=== PATIENT | female | born 1935 | race Caucasian/White ===

== ENCOUNTER 2016-09-08 00:36 | Emergency (ER) | payer MEDICARE, OTHER ==
[~2016-09-08 00:36] MED LIST: ARIMIDEX1 M1 PO; CINNAMON PO; CITRACAL + D E1 EAC1 PO; CLONAZEPAM1 MG PO; ENALAPRIL MALEA20 MG PO; FISH OIL 1,0001 EAC6 PO; FISH OIL PO; FLONASE ALLERG9.9 ML; GINGER PO; LIPITOR10 MG PO; MULTIVITAMIN1 TAB PO; OS-CAL PO; PRAVASTATIN SOD10 M1 PO; PREVACID30 MG PO; PROAIR HFA8.5 GM IH; SEPTRA DS TABLE1 TAB PO; SPIRONOLACTONE25 M2 PO; TUMERIC PO; TURMERIC500 M1 PO; ULTRAM50 MG PO; VITAMIN C PO; VITAMIN C500 M3 PO; VITAMIN PO
[2016-09-08] MEDS ORDERED: ASMANEX HFA13 G1 INH (00:55)
[2016-09-08] MEDS ORDERED: SINGULAIR10 M1 (00:57)
[2016-09-08 01:24] LABS: BASO % 0.4 % (0-2); EOS % 1.3 % (0-7); EOSINOPHIL ABSOLUTE COUNT 0.1 tho/cmm (0.0-0.7); HCT-HEMATOCRIT 39.2 % (34.0-49.0); HGB-HEMOGLOBIN 13.2 gm/dl (12.0-15.5); IMMATURE GRANULOCYTES ABSOLUTE 0.02 tho/cmm (0-0.03); IMMATURE GRANULOCYTES PERCENT 0.2 % (0-0.3); LYMPH % 19.5 % (20-45); LYMPH ABSOLUTE COUNT 1.6 tho/cmm (0.8-4.5); MCH (MEAN CORPUSCULAR HGB) 30.1 pg (28.0-32.0); MCHC MEAN CORPUSCULAR HGB CONC 33.7 % (32.0-36.0); MCV (MEAN CELL VOLUME) 89.3 fl (82.0-96.0); MEAN PLATELET VOLUME 10.2 cmc (9.4-12.4); MONO % 11.7 % (0-12); NEUTROPHIL ABSOLUTE COUNT 5.5 tho/cmm (1.6-8.0); NEUTROPHIL-AUTOMATED 5.5 tho/cmm (1.6-8.0); NEUTROPHILS % 66.9 % (40-80); PLATELET COUNT 268 tho/cmm (150-450); RED BLOOD COUNT 4.39 mil/cmm (4.00-5.20); RED CELL DISTRIBUTION WIDTH 13.6 % (12.4-16.4); WHITE BLOOD COUNT 8.2 tho/cmm (4.0-10.0)
[2016-09-08 01:39] LABS: ANION GAP 12 mmol/L (0-20); BLOOD UREA NITROGEN 22 mg/dl (6-24); CARBON DIOXIDE-VENOUS 25 mmol/L (22-32); CHLORIDE 109 mmol/l (96-110); CREATININE 0.98 mg/dl (0.50-1.10); GLUCOSE 112 mg/dL (70-110); SODIUM 142 mmol/L (135-145); eGFR VALUE FOR BLACK 64 mL/Min
[2016-09-08 01:40] LABS: POTASSIUM 4.1 mmol/L (3.7-5.1)
[2016-09-08] MEDS ORDERED: CYCLOBENZAPRINE5 M1 PO (02:48)
== END 2016-09-08 02:59 ==
LOC: EDMED 00:36
PROVIDERS: Emergency Medicine
DX: M54.2 Cervicalgia (principal); G89.29 Other chronic pain; R07.89 Other chest pain